=== PATIENT | male | born 1990 | race African-American/Black ===

== ENCOUNTER 2016-05-01 09:30 | Emergency (ER) | payer SELFPAY ==
[~2016-05-01] VITALS: Ht 185.4 cm; Wt 68.0 kg
[2016-05-01 09:52] VITALS: BP 119/55
--- NOTE | 2016-05-01 10:06 | PHYS DOC ---
Past Medical History Past Medical History: No Pertinent History Past Surgical History: Other Additional Past Surgical Histo: RIGHT ANKLE Alcohol Use: Rarely Drug Use: Marijuana Adult General Chief Complaint Chief Complaint: BACK PAIN OR INJURY HPI HPI Patient is a 26 year old male who presents with with lower back pain. Patient reports for the past 3 days he has had bilateral low back soreness. No trauma or other clear inciting event. He reports that he did have similar symptoms a week ago, however he says he gave up drinking for a few days ago and the symptoms resolved on their own. He has been taking ibuprofen at home with insufficient relief. No lower extremity numbness or weakness. No loss of bowel or bladder continence. Review of Systems Review of Systems Constitutional: Denies fever or chills Respiratory: Denies cough or shortness of breath Cardiovascular: Denies chest pain GI: Denies abdominal pain, nausea, vomiting, or diarrhea Musculoskeletal: B/l low back pain Neurologic: Denies headache, focal weakness or sensory changes Current Medications Current Medications Current Medications Medications (Trade) Dose Ordered Sig/Fidencio Start Time Stop Time Status Last Admin Dose Admin Cyclobenzaprine HCl (Flexeril) 10 mg 1X ONCE 05/01/16 10:15 05/01/16 10:16 DC 05/01/16 11:08 10 MG Allergies Allergies Allergies Coded Allergies Type Severity Reaction Last Updated Verified Sulfa (Sulfonamide Antibiotics) Allergy Unknown HIVES/SWELLING 05/02/14 No Physical Exam Physical Exam Constitutional: Well developed, well nourished, no acute distress, non-toxic appearance Cardiovascular: Heart rate normal, regular rhythm, no murmur Lungs & Thorax: Bilateral breath sounds clear to auscultation Abdomen: Bowel sounds normal, soft, non-distended, no TTP Skin: Warm, dry, no erythema, no rash Back: Mild lateral TTP b/l L>R, no skin lesion or deformity noted Extremities: No obvious deformity, no edema Neurologic: Alert and oriented X 3, sensation and motor strength in BLE fully intact and symmetrical, no gross deficits noted Current Patient Data Vital Signs Vital Signs Date Time Temp Pulse Resp B/P Pulse Ox O2 Delivery O2 Flow Rate FiO2 05/01/16 09:52 98.1 80 18 100 Room Air 98.1 Lab Values Laboratory Tests Test 05/01/16 10:00 Urine Collection Type Void Urine Color Straw Urine Clarity Clear Urine pH 7.5 Urine Specific [place] 1.010 Urine Protein Negativemg/dL (NEG-TRACE) Urine Glucose (UA) Negativemg/dL (NEG) Urine Ketones (Stick) Negativemg/dL (NEG) Urine Blood Negative (NEG) Urine Nitrite Negative (NEG) Urine Bilirubin Negative (NEG) Urine Urobilinogen Dipstick 0.2mg/dL (0.2 mg/dL) Urine Leukocyte Esterase Negative (NEG) Urine RBC Rare/HPF (0-2) Urine WBC Rare/HPF (0-4) Urine Squamous Epithelial Cells None/LPF Urine Bacteria Few/HPF (0-FEW) EKG EKG [] Radiology/Procedures Radiology/Procedures [] Course & Med Decision Making Course & Med Decision Making Pertinent Labs and Imaging studies reviewed. (See chart for details) Patient is 26-year-old male who presents with lower back pain. Suspect muscle spasm, although would also consider other pathology such as UTI. Will obtain UA. Dose of Flexeril ordered for pain control as he has recently had ibuprofen. UA unremarkable. Discussed results with patient. Will discharge home with prescription for Flexeril, instructions for follow-up, return precautions Dragon Disclaimer Dragon Disclaimer This electronic medical record was generated, in whole or in part, using a voice recognition dictation system. Departure Departure Impression: Primary Impression: Low back pain Disposition: HOME, SELF-CARE Condition: STABLE Referrals: NO PCP (PCP) Patient Instructions: Back Pain, Adult Additional Instructions: Thank you for allowing us to provide care today in the Emergency Department. Take the provided medication as directed. Use caution when taking this medication as it can make you drowsy. Also continue to take ibuprofen or naproxen. Follow the directions on the label. Schedule a follow up appointment with your primary care doctor. Return promptly to the Emergency Department if you develop any new or concerning symptoms. Scripts Cyclobenzaprine Hcl 10 Mg [id number] Mg PO TID PRN MUSCLE SPASMS #12 TAB Prov:DIAMOND YUEN MD 05/01/16 DIAMOND YUEN MD May 01, 2016 10:06
[2016-05-01 10:11] LABS: BILIRUBIN,URINE NEGATIVE (NEG); GLUCOSE,URINE NEGATIVE (NEG); NITRITE,URINE NEGATIVE (NEG); PH,URINE 7.5; PROTEIN,URINE NEGATIVE (NEG-TRACE); UROBILINOGEN,URINE 0.2 mg/dL (0.2 mg/dL)
[2016-05-01] MEDS ORDERED: CYCLOBENZAPRINE 10 MG TABLET. PO ONE (10:15)
[2016-05-01 10:25] LABS: BACTERIA,URINE FEW /HPF (0-FEW); RBC,URINE RARE /HPF (0-2); WBC,URINE RARE /HPF (0-4)
[2016-05-01] MEDS ORDERED: CYCL10TA2 PO (11:02)
== END 2016-05-01 11:24 | disposition home or self-care (01) ==
LOC: ER 09:30
DX: M54.5 Low back pain (principal); F12.10 Cannabis abuse, uncomplicated; Z88.2 Allergy status to sulfonamides
CPT/HCPCS: 81001; 99283